=== PATIENT | male | born 1990 | race Caucasian/White ===

== ENCOUNTER 2016-05-18 14:24 | Emergency (ER) | payer BC ==
[~2016-05-18] VITALS: Ht 167.6 cm; Wt 68.0 kg
--- NOTE | 2016-05-18 14:22 | Emergency Room Report ---
History of Present Illness General Chief Complaint: Overdose Source: Patient Present Illness HPI Patient is a 25-year-old male brought in by EMS after a increased altered mental status. Patient was found unresponsive in a stall at [facility]. Patient was noted to have some drug paraphernalia which appear to be black tar heroin. The patient was noted to have normal respiratory normal skin color. The patient was responsive by EMS. Allergies: Coded Allergies: No Known Allergies (Unverified , 05/18/16) Patient History Past Medical History: see triage record Reviewed Nursing Documentation: PMH: Agreed, PSxH: Agreed Nursing Documentation-PMH Past Medical History: No Stated History Review of Systems All Other Systems: negative except mentioned in HPI Physical Exam Vital Signs Date Time Temp Pulse Resp B/P Pulse Ox O2 Delivery O2 Flow Rate FiO2 05/18/16 14:13 97.3 110 16 148/86 100 Room Air Sp02 EP Interpretation: reviewed, normal General Appearance: normal inspection, well appearing, no apparent distress, alert, GCS 15 Head: atraumatic ENT: normal ENT inspection, hearing grossly normal, normal voice Neck: normal inspection, full range of motion, supple, no bony tend Respiratory: normal inspection, lungs clear, normal breath sounds, no respiratory distress, no retraction, no wheezing Cardiovascular #1: regular rate, rhythm, no edema Gastrointestinal: normal inspection, normal bowel sounds, non tender, soft, no guarding, no hernia Genitourinary: no CVA tenderness Musculoskeletal: normal inspection, back normal, normal range of motion Neurologic: normal inspection, alert, oriented x3, responsive, it application development manager III-XII nml as tested, speech normal Psychiatric: normal inspection, judgement/insight normal, mood/affect normal Skin: normal inspection, normal color, no rash Medical Decision Making Diagnostic Impression: Primary Impression: Overdose ER Course Patient presented for altered mental status. Differential diagnosis included but was not limited to ischemic stroke, subarachnoid hemorrhage, hypoglycemia, spinal cord injury, neurodegenerative disorder, urinary tract infection, hypoxemia. The patient appear to have opiate overdose which did not require treatment with Narcan at this time.Patient was observed in the emergency department was stable throughout stay. At the of discharge patient is awake alert oriented names for assistance. Patient was noted to have normal mental status at the time of discharge and denied any intent to harm himself and has a good plan for self care. The patient is advised to follow up with primary care doctor in 1-2 days. Patient is advised to return if any worsening condition or if any changes in status that are concerning.Patient was given outpatient mental health referral Last Vital Signs Date Time Temp Pulse Resp B/P Pulse Ox O2 Delivery O2 Flow Rate FiO2 05/18/16 14:13 97.3 110 16 148/86 100 Room Air Status: improved Disposition: HOME, SELF-CARE Condition: Stable DavideRobby May 18, 2016 14:22
[2016-05-18 14:49] VITALS: BP 112/67
[2016-05-18] MEDS ORDERED: ATIVAN0.5 MG ORAL (15:07)
[2016-05-18] MEDS ORDERED: ADDERAL20 MG ORAL (15:08)
[2016-05-18 15:25] VITALS: BP 113/70
[2016-05-18 15:35] VITALS: BP 113/70
== END 2016-05-18 15:40 | disposition home or self-care (01) ==
LOC: EDBD 14:24 → EMR 15:40
DX: T50.901A Poisoning by unspecified drugs, medicaments and biological substances, accidental (unintentional), initial encounter (principal); Y92.9 Unspecified place or not applicable
CPT/HCPCS: 99283